=== PATIENT | male | born 1985 | race Caucasian/White ===

== ENCOUNTER 2024-08-19 20:52 | Emergency (ER) | payer MEDICAID, OTHER ==
[~2024-08-19] VITALS: Ht 188 cm; Wt 70.0 kg
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
[2024-08-20 00:08] VITALS: BP 99/64; PULSE 94
[2024-08-20 00:11] VITALS: RESP 18; O2SAT 100
== END 2024-08-20 00:21 | disposition home or self-care (01) ==
LOC: ER 20:52 → EDBD 20:52 → ER 08-20 00:21
DX: T69.9XXA Effect of reduced temperature, unspecified, initial encounter (principal); Z59.00 Homelessness unspecified; X31.XXXA Exposure to excessive natural cold, initial encounter

== ENCOUNTER 2024-12-04 02:57 | Inpatient (IN) | payer MEDICAID ==
[~2024-12-04] VITALS: Ht 185.4 cm; Wt 73.6 kg
[2024-12-04] MEDS ORDERED: HYD1TP TOP (03:18)
[2024-12-04] MEDS ORDERED: DIPH25TA54 PO (03:18)
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
[2024-12-04] MEDS: predniSONE 20 MG TAB PO ONE (04:12)
[2024-12-04 05:27] LABS: Basophils # (auto) 0.1 10 ^3/uL (0-0.2); Basophils % (auto) 1.3 % (0.0-2.0); Eosinophils # (auto) 0.4 10 ^3/uL (0-0.8); Eosinophils % (auto) 5.3 % (0.0-7.0); Hematocrit 42.8 % (41.0-53.0); Hemoglobin 14.6 g/dL (13.5-17.5); Lymphocytes # (auto) 2.8 10 ^3/uL (0.4-5.4); Lymphocytes % (auto) 38.9 % (10.0-50.0); Mean Corpuscular Hemoglobin 30.3 pg (28.0-32.0); Mean Corpuscular Hgb Conc. 34.1 g/dL (32.0-36.0); Mean Corpuscular Volume 88.6 fL (80.0-100.0); Monocytes % (auto) 13.2 % (0.0-12.0); Neutrophils % (auto) 41.3 % (37.0-80.0); Nucleated Red Blood Cells % 0.1 %; Platelet Count (auto) 365 10^3/uL (140-450); Red Blood Cells 4.83 10^6/uL (4.5-5.90); Red Cell Distribution Width 13.9 % (11.8-14.3); White Blood Cell 7.2 10^3/uL (4.4-10.8)
[2024-12-04 05:45] LABS: Albumin 4.5 g/dL (3.2-4.8); Alkaline Phosphatase 98 U/L (46-116); Anion Gap 7 (5-15); BUN/Creatinine Ratio 6.4 (10.0-20.0); Bilirubin, Total 0.5 mg/dL (0.2-1.0); CRP High Sensitivity 0.24 mg/dL (<1.0); Calcium 9.5 mg/dL (8.7-10.4); Carbon Dioxide 24 mmol/L (20-31); Glucose 92 mg/dL (74-106); Magnesium 2.3 mg/dL (1.6-2.6); Potassium 3.6 mmol/L (3.5-5.1); Sodium 141 mmol/L (136-145); Total Protein 7.2 g/dL (5.7-8.2)
[2024-12-04 06:02] LABS: Alanine Aminotransferase 50 U/L (7-40); Aspartate Aminotransferase 53 U/L (13-40); Blood Urea Nitrogen 5 mg/dL (9-23); Chloride 110 mmol/L (98-107); Creatine Kinase IFCC 1484 U/L (46-171)
[2024-12-04] MEDS: SODIUM CHLORIDE 0.9% 1,000 ML IV ONE ×2 (06:15→07:23)
[2024-12-04 06:27] LABS: Blood Alcohol < 3.0 mg/dL (<10)
--- NOTE | 2024-12-04 06:34 | DVH ---
EXAM: CT HEAD WITHOUT CONTRAST INDICATION: Bilateral lower extremity weakness TECHNIQUE: CT of the head without intravenous contrast. Radiation Dose : 1. Head: CT Dose: CTDI volume is 57 mGy. Dose-length product is 1133 mGy*cm The dose indicators for CT are the volume Computed Tomography (CT) Dose Index (CTDIvol) and the Dose Length Product (DLP), and are measured in units of mGy and mGy-cm, respectively. These indicators are not patient dose, but values generated from the CT scanner acquisition factors. The report includes radiation exposure data for exposures received during this examination. COMPARISON: None FINDINGS: There is no evidence of acute intracranial hemorrhage, extra-axial collection, mass effect, midline s hift, herniation or hydrocephalus. The ventricles, sulci and cisterns are age appropriate. The obregon-white differentiation is intact. The visualized paranasal sinuses and mastoid air cells are clear. The surrounding soft tissues and osseous structures are unremarkable. IMPRESSION: No acute intracranial abnormality. Radiation optimization: All CT scans at this facility use at least one of these dose optimization tony hniques: automated exposure control mA and/or kV adjustment per patient size (includes targeted exam s where dose is matched to clinical indication) or iterative reconstruction.
--- NOTE | 2024-12-04 06:54 | DVH ---
EXAM: CT LS SPINE WO CONTRAST HISTORY: Bilateral lower extremity weakness, history of back pain COMPARISON: None CTDIvol 22 mGy, DLP 865 mGy*cm. TECHNIQUE: Multiple axial CT images of the spine were obtained using bone algorithm. Axial and coron al reformatting was done. Bone and soft tissue windows were reviewed. FINDINGS: No CT evidence of definite acute fracture, spinal dislocation, or significant appearing acute subluxa tion is seen. The visualized paraspinal soft tissues are grossly unremarkable. Mild disc osteophyte hypertrophy at L5-S1 creates mild canal and mild to moderate left foraminal sten osis. Moderate canal stenosis at L3-L4 and L4-L5. Borderline congenitally spinal canal possibly representing a degree of developmental lumbar spinal st enosis. Nonemergent MRI can be obtained to further evaluate if clinically indicated. IMPRESSION: No definite CT evidence of acute fracture or dislocation of the bony lumbar spine.
[2024-12-04] MEDS ORDERED: ACETAMINOPHEN 500 MG TAB or CAP PO PRN (07:00)
[2024-12-04] MEDS ORDERED: traMADol HCL 50 MG TAB PO PRN (07:00)
[2024-12-04] MEDS ORDERED: HYDROCORTISONE 2.5% TOPICAL CREAM 30GM TUBE TOP PRN (07:00)
[2024-12-04] MEDS ORDERED: ONDANSETRON HCL 4 MG/2 ML VIAL IV PRN (07:00)
--- NOTE | 2024-12-04 07:14 | DVHHP2 ---
History of Present Illness Reason for Visit: Questionable allergic reaction to legs, lower extremity weakness History of Present Illness Patient was a 39-year-old male presenting to the emergency room with worsening bilateral lower extremity weakness, as well as rash to his legs and sacral area. Patient is somewhat encephalopathic, questionable toxic encephalopathy according to ER physician's notes with history of illicit drug use. Patient was states that his symptoms started approximately one day ago. He denies having any medical history. Patient was found to have severe lower extremity weakness, unable to bend his legs when asked to move. Patient was able to plantar flex and dorsiflex with noted weakness. CT scan of lumbar spine is pending, with questionable lumbar spinal fracture to be ruled out. Patient has normal strength noted to upper extremities as he was able to turn to side-lying position using his arms. Past Medical History Patient denies any medical history Past Surgical History Patient denies any surgical history Smoke: 1 pack per day ALCOHOL: none (Patient denies) Drugs: None (Patient denies) Lives: Homeless Review of Systems Constitutional: No: Fever, Chills, Sweats, Weakness, Malaise, Other Eyes: No: Pain, Vision change, Conjunctivae inflammation, Eyelid inflammation, Other, Redness ENT: No: Ear pain, Ear discharge, Nose pain, Nose discharge, Nose congestion, Mouth pain, Mouth swelling, Throat pain, Throat swelling, Other Respiratory: No: Cough, Dry, Shortness of breath, SOB with excertion, Wheezing, Hemoptysis, Pleuritic Pain, Sputum, Wheezing, Other Cardiovascular: No: Chest Pain, Palpitations, Orthopnea, Paroxysmal Noc. Dyspnea, Edema, Lt Headedness, Other Gastrointestinal: No: Nausea, Vomiting, Abdominal Pain, Diarrhea, Constipation, Melena, Hematochezia, Other Musculoskeletal: No: other, neck pain, shoulder pain, arm pain, back pain, hand pain, leg pain, foot pain Skin: Other (Burning to his legs) Neurological: Other (Weakness to lower extremities) Allergies: Coded Allergies: NO KNOWN ALLERGIES (Unverified , 08/19/24) Medications Current Medications Medications Dose Ordered Sig/Juan Route Start Time Stop Time Status Last Admin Dose Admin Hydrocortisone 1 applic BIDP PRN TOP 12/04/24 07:00 Acetaminophen 500 mg Q8HP PRN PO 12/04/24 07:00 Ondansetron HCl 4 mg Q6HP PRN IV 12/04/24 07:00 Tramadol HCl 50 mg Q6HP PRN PO 12/04/24 07:00 Exam Vital Signs Vital Signs Date Time Temp Pulse Resp B/P (MAP) Pulse Ox O2 Delivery O2 Flow Rate FiO2 12/04/24 06:30 97.8 67 16 122/82 (95) 98 97.8 12/04/24 06:15 Room Air* 0 21 General Appearance: Alert, Cooperative, moderate distress, Other (Oriented to person place) HEENT: Atraumatic, PERRLA, EOMI Cardiovascular: Normal S1, Normal S2 Abdominal: Normal bowel sounds, Soft, No tenderness Skin: No rashes, No breakdown Psych/Mental Status: Other (Difficulty focusing) Labs/Xrays Labs Test 12/04/24 06:36 12/04/24 05:15 Range/Units White Blood Count 7.2 4.4-10.8 10^3/uL Red Blood Count 4.83 4.5-5.90 10^6/uL Hemoglobin 14.6 13.5-17.5 g/dL Hematocrit 42.8 41.0-53.0 % Mean Corpuscular Volume 88.6 80.0-100.0 fL Mean Corpuscular Hemoglobin 30.3 28.0-32.0 pg Mean Corpuscular Hemoglobin Concent 34.1 32.0-36.0 g/dL Red Cell Distribution Width 13.9 11.8-14.3 % Platelet Count 365 140-450 10^3/uL Mean Platelet Volume 6.5 L 6.9-10.8 fL Neutrophils (%) (Auto) 41.3 37.0-80.0 % Lymphocytes (%) (Auto) 38.9 10.0-50.0 % Monocytes (%) (Auto) 13.2 H 0.0-12.0 % Eosinophils (%) (Auto) 5.3 0.0-7.0 % Basophils (%) (Auto) 1.3 0.0-2.0 % Neutrophils # (Auto) 3.0 1.6-8.6 10 ^3/uL Lymphocytes # (Auto) 2.8 0.4-5.4 10 ^3/uL Monocytes # (Auto) 1.0 0-1.3 10 ^3/uL Eosinophils # (Auto) 0.4 0-0.8 10 ^3/uL Basophils # (Auto) 0.1 0-0.2 10 ^3/uL Nucleated Red Blood Cells 0.1 % Sodium Level 141 136-145 mmol/L Potassium Level 3.6 3.5-5.1 mmol/L Chloride Level 110 H 98-107 mmol/L Carbon Dioxide Level 24 20-31 mmol/L Anion Gap 7 5-15 Blood Urea Nitrogen 5 L 9-23 mg/dL Creatinine 0.78 0.700-1.30 mg/dL Glomerular Filtration Rate Calc 116 >90 mL/min BUN/Creatinine Ratio 6.4 L 10.0-20.0 Serum Glucose 92 74-106 mg/dL Lactic Acid Level 1.1 0.4-2.0 mmol/L Calcium Level 9.5 8.7-10.4 mg/dL Magnesium Level 2.3 1.6-2.6 mg/dL Total Bilirubin 0.5 0.2-1.0 mg/dL Aspartate Amino Transferase (AST) 53 H 13-40 U/L Alanine Aminotransferase (ALT) 50 H 7-40 U/L Alkaline Phosphatase 98 46-116 U/L Creatine Kinase 1484 H 46-171 U/L C-Reactive Protein High Sensitivity 0.24 <1.0 mg/dL Total Protein 7.2 5.7-8.2 g/dL Albumin 4.5 3.2-4.8 g/dL Plasma/Serum Blood Alcohol < 3.0 <10 mg/dL Assessment/Plan Assessment/Plan Impression: -metabolic encephalopathy, questionable toxic -? Lumbar spinal fracture with paresthesia and claudication -? History of illicit drug use -rhabdomyolysis Plan: -admit to Medical/Surgical unit -CT scan of the lumbar spine: Pending -agree with MRI of the lumbar spine ordered by ER physician given patient's symptoms -pain management -gentle IV hydration -consider Neurology and ortho spine consultation pending diagnostic tests Total time spent with patient discussing and formulating plan of care: 35 minutes. This medical document was created using an electronic medical record system with [employer] dictation system. Although this document has been carefully reviewed, there may still be some phonetic and typographical errors. These areas are purely typographical due to imperfections of the software programs, and do not reflect any compromise in the patient's medical care. 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 Procedure Category Date Status Time Admit ADMIT 12/04/24 Transmitted 06:50 Oxygen By Nasal RT 12/04/24 Transmitted Cannula 06:50 Ls Spine Wo Contrast CT 12/04/24 Logged 06:50 Sodium Chloride 0.9% PHA 12/04/24 In Process 07:00 Hydrocortone 2.5% PHA 12/04/24 In Process Topical Crm (Hydrocort 07:00 Acetaminophen Tab Or PHA 12/04/24 In Process Cap (Tylenol Tablet 07:00 Ondansetron Hcl PHA 12/04/24 In Process (Zofran) 07:00 Basic Metabolic Panel LAB 12/05/24 Verified 04:00 Complete Blood Count LAB 12/05/24 Verified 04:00 Tramadol Hcl (Ultram) PHA 12/04/24 In Process 07:00 Date of Service: Dec 04, 2024 Billing Provider: MILES BARTHOLOMEW NP Common Visit Codes: [id number] INP/OBS CARE (HIGH) MILES BARTHOLOMEW NP Dec 04, 2024 07:14
[2024-12-04 07:29] LABS: Amphetamine Screen, Urine Pos (NEGATIVE); Barbiturate Scree,Urine Neg (NEGATIVE); Benzodiazephine Screen, Urine Neg (NEGATIVE); Cannabinoid Screen, Urine Neg (NEGATIVE); Cocaine Screen, Urine Neg (NEGATIVE); Opiate Scree,Urine Neg (NEGATIVE); Phencyclidine Screen, Urine Neg (NEGATIVE)
--- NOTE | 2024-12-04 08:25 | DVH ---
EXAM: US Scrotum and US Duplex Arterial/Venous of the Testicles, Complete CLINICAL INDICATION: Testicular swelling and TECHNIQUE: Real-time ultrasound of the scrotum with color Doppler and image documentation. Real-yvonne e duplex ultrasound scan of the arterial and venous flow of the scrotal contents with color Doppler f low and spectral waveform analysis. COMPARISON: None FINDINGS: RIGHT TESTICLE: Unremarkable. The right testicle measures 3.8 x 2.4 x 2.3 cm. No testicular torsi on or abscess. LEFT TESTICLE: The left testicle measures 4.3 x 1.9 x 3.2 cm. EPIDIDYMIDES: Right epididymis measures up to 10.2 mm. Left epididymis measures up to 10.2 mm. SCROTUM: Left varicocele. OTHER FINDINGS: . IMPRESSION: No testicular torsion or abscess.
[2024-12-04 09:30] VITALS: PULSE 85; RESP 18; O2SAT 97
[2024-12-04 10:52] VITALS: BP 114/66; PULSE 62; RESP 16; TEMP 97.7; O2SAT 100
--- NOTE | 2024-12-04 15:57 | DVH ---
EXAM: MRI LUMBAR SPINE WO CONTRAST CLINICAL HISTORY: B/L LE weakness COMPARISON: CT L spine 12/04/2024 TECHNIQUE: MRI imaging of the lumbar was performed on a MRI imaging system without intravenous contrast. FINDINGS: 5 [id number] lumbar-type vertebrae. Normal alignment of the lumbar spine. Straightening of the lumbar lordosis. Multilevel endplate Schmorl node. No evidence of acute traumatic fractures or spondy lolisthesis. Marrow edema of the anterior superior L5 vertebral body which is most likely from degene rative changes. Minimal multilevel endplate degenerative marrow signal. L5 limbus vertebra. The conus terminates at the level of the upper vertebral body of L1 with no abnormal cord signal. T12-L1: No significant spinal canal or neural foramina stenosis. L1-L2: No significant spinal canal or neural foramina stenosis. Minimal bilateral facet effusion. L2-L3: No significant spinal canal or neural foramina stenosis. Mild bilateral facet effusion L3-L4: Minimal posterior disc bulge with dorsal epidural lipomatosis causing mild spinal canal stenos is without significant neural foramina stenosis. Minimal bilateral facet effusion. L4-L5: Mild posterior disc bulge without significant spinal canal stenosis. Severe right with moderat e left-sided neural foramina stenosis. Mild bilateral facet effusion L5-S1: No significant spinal canal or neural foramina stenosis. The paraspinal muscles are unremarkable. IMPRESSION: Severe right with Moderate left-sided neural foramina stenosis at L4-L5. Mild spinal canal stenosis at L3-L4.
[2024-12-04 17:04] VITALS: BP 111/72; PULSE 62; RESP 16; TEMP 97.9; O2SAT 96
[2024-12-04 21:00] VITALS: BP 106/62; PULSE 62; RESP 20; TEMP 98.4; O2SAT 97
[2024-12-05] VITALS (8 sets, daily range): BP systolic 101–109; BP diastolic 57–73; PULSE 52–80; RESP 16–20; TEMP 97.6–98.6; O2SAT 95–98
[2024-12-05 06:57] LABS: Calcium 9.6 mg/dL (8.7-10.4); Chloride 106 mmol/L (98-107); Potassium 3.5 mmol/L (3.5-5.1); Sodium 140 mmol/L (136-145)
[2024-12-05 06:58] LABS: Anion Gap 10 (5-15); Carbon Dioxide 24 mmol/L (20-31)
[2024-12-05 07:00] LABS: Basophils # (auto) 0 10 ^3/uL (0-0.2); Basophils % (auto) 0.6 % (0.0-2.0); Eosinophils # (auto) 0.1 10 ^3/uL (0-0.8); Eosinophils % (auto) 1.7 % (0.0-7.0); Hematocrit 40.4 % (41.0-53.0); Hemoglobin 14.3 g/dL (13.5-17.5); Lymphocytes # (auto) 2.9 10 ^3/uL (0.4-5.4); Lymphocytes % (auto) 39.1 % (10.0-50.0); Mean Corpuscular Hemoglobin 31.9 pg (28.0-32.0); Mean Corpuscular Hgb Conc. 35.4 g/dL (32.0-36.0); Monocytes # (auto) 0.8 10 ^3/uL (0-1.3); Monocytes % (auto) 10.1 % (0.0-12.0); Neutrophils # (auto) 3.7 10 ^3/uL (1.6-8.6); Neutrophils % (auto) 48.5 % (37.0-80.0); Nucleated Red Blood Cells % 0.1 %; Platelet Count (auto) 352 10^3/uL (140-450); Red Blood Cells 4.49 10^6/uL (4.5-5.90); Red Cell Distribution Width 13.9 % (11.8-14.3); White Blood Cell 7.5 10^3/uL (4.4-10.8)
[2024-12-05 07:03] LABS: BUN/Creatinine Ratio 14.7 (10.0-20.0); Blood Urea Nitrogen 10 mg/dL (9-23); Glucose 92 mg/dL (74-106)
--- NOTE | 2024-12-05 13:14 | DVHPN2 ---
Subjective The patient is seen and examined at bedside. Complain of pain. Reviewed: Care Plan, H&P, Labs, Medications, Previous Orders, Radiology Changes from previous H/P or p: No Changes Eyes: No Pain, No Vision change, No Conjunctivae inflammation, No Eyelid inflammation, No Other, No Redness ENT: No Ear pain, No Ear discharge, No Nose pain, No Nose discharge, No Nose congestion, No Mouth pain, No Mouth swelling, No Throat pain, No Throat swelling, No Other Cardiovascular: No Chest Pain, No Palpitations, No Orthopnea, No Paroxysmal Noc. Dyspnea, No Edema, No Lt Headedness, No Other Respiratory: No Cough, No Dry, No Shortness of breath, No SOB with excertion, No Wheezing, No Hemoptysis, No Pleuritic Pain, No Sputum, No Other Gastrointestinal: No Nausea, No Vomiting, No Abdominal Pain, No Diarrhea, No Constipation, No Melena, No Hematochezia, No Other Musculoskeletal: No other, No neck pain, No shoulder pain, No arm pain, No back pain, No hand pain, No leg pain, No foot pain Skin: Other (Burning to his legs) Objective Vitals Vital Signs Date Time Temp Pulse Resp B/P (MAP) Pulse Ox O2 Delivery O2 Flow Rate FiO2 12/05/24 09:30 80 18 97 Room Air* 0 21 12/05/24 09:08 97.6 101/65 (77) 97.6 Intake/Output Intake and Output 12/05/24 07:00 Intake Total 1650 ml Output Total 780 ml Balance 870 ml Intake Oral 425 ml IV Total 1225 ml Output Urine Total 780 ml # Voids 5 # Bowel Movements 1 General Appearance: Alert, Oriented X3, Cooperative, No acute distress HEENT: Atraumatic, PERRLA, EOMI, Mucous membr. moist/pink Neck: Supple Lungs: Clear to auscultation, Normal air movement Cardiovascular: Regular rate, Normal S1, Normal S2, No murmurs, Gallops, Rubs Abdomen: Normal bowel sounds, Soft, No tenderness Neuro: Cranial nerves 3-12 NL Psych/Mental Status: Mental status NL Medications Current Medications Medications Dose Ordered Sig/Juan Route Start Time Stop Time Status Last Admin Dose Admin Hydrocortisone 1 applic BIDP PRN TOP 12/04/24 07:00 Acetaminophen 500 mg Q8HP PRN PO 12/04/24 07:00 Ondansetron HCl 4 mg Q6HP PRN IV 12/04/24 07:00 Tramadol HCl 50 mg Q6HP PRN PO 12/04/24 07:00 Laboratory Results Laboratory Tests 12/05/24 05:53 Chemistry Test 12/05/24 05:53 Calcium Level 9.6 mg/dL (8.7-10.4) Labs and/or images reviewed: Labs reviewed by me Assessment/Plan Assessment/Plan -metabolic encephalopathy, questionable toxic -lumbar stenosis with paresthesia and claudication -? History of illicit drug use -rhabdomyolysis Plan: Continuing current management. Review MRI showed: Severe right with Moderate left-sided neural foramina stenosis at L4-L5. Mild spinal canal stenosis at L3-L4. I will consult spine surgeon. Continuing pain medication. Continuing IV fluid. This medical document was created using an electronic medical record system with [employer] computerized dictation system. Although this document has been carefully reviewed, there may still be some phonetic and typographical errors. These areas are purely typographical due to imperfections of the software programs, and do not reflect any compromise in the patient's medical care. 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 Date of Service: Dec 05, 2024 Billing Provider: KARYN LOO MD Common Visit Codes: [id number] INP/OBS CARE(HIGH) KARYN LOO MD Dec 05, 2024 13:14
--- NOTE | 2024-12-05 19:39 | DVHINCON2 ---
Consultation - Spinal Surgery Date Seen: Dec 05, 2024 Referring Physician Referring Physician Attending Doctor: Austin Smith [employer] Extrusion Machine Operator Reason for Consultation Reason for Visit: Questionable allergic reaction to legs, lower extremity weakness History of Present Illness History of Present Illness Patient was a 39-year-old male presenting to the emergency room with worsening bilateral lower extremity weakness, as well as rash to his legs and sacral area. Patient is somewhat encephalopathic, questionable toxic encephalopathy according to ER physician's notes with history of illicit drug use. Patient was states that his symptoms started approximately one day ago. He denies having any medical history. Patient was found to have severe lower extremity weakness, unable to bend his legs when asked to move. Patient was able to plantar flex and dorsiflex with noted weakness. CT scan of lumbar spine is pending, with questionable lumbar spinal fracture to be ruled out. Patient has normal strength noted to upper extremities as he was able to turn to side-lying position using his arms. Past Medical/Surgical History Past Medical/Surgical History Past Medical History Patient denies any medical history Past Surgical History Patient denies any surgical history Family and Social History Family and Social History Smoke: 1 pack per day ALCOHOL: none (Patient denies) Drugs: None (Patient denies) Lives: Homeless Allergies and medications Allergies: Coded Allergies: NO KNOWN ALLERGIES (Unverified , 08/19/24) Home Meds Active Scripts Diphenhydramine Hcl (Benadryl Allergy) 25 Mg Tab, 25 MG PO TIDPRN PRN for 3 Days, #9 TAB Prov:SULLY CASTELLON MD 12/04/24 Hydrocortone (Hydrocortisone 1%) 1 Applic Ap, 1 APPLIC TOP BID for 7 Days, #30 GRAMS Do not use more than 7 days Prov:SULLY CASTELLON MD 12/04/24 Review of systems Review of Systems: HEENT:Normal, CVS:Normal, RESPIRATORY:Normal, GI:Normal, :Normal, MSK:Abnormal (unable to bend his legs Skin: Other (Burning to his legs)), NEURO:Abnormal Examination Vital signs Imaging EXAM: MRI LUMBAR SPINE WO CONTRAST CLINICAL HISTORY: B/L LE weakness COMPARISON: CT L spine 12/04/2024 TECHNIQUE: MRI imaging of the lumbar was performed on a MRI imaging system without intravenous contrast. FINDINGS: 5 [id number] lumbar-type vertebrae. Normal alignment of the lumbar spine. Straightening of the lumbar lordosis. Multilevel endplate Schmorl node. No evidence of acute traumatic fractures or spondylolisthesis. Marrow edema of the anterior superior L5 vertebral body which is most likely from degenerative changes. Minimal multilevel endplate degenerative marrow signal. L5 limbus vertebra. The conus terminates at the level of the upper vertebral body of L1 with no abnormal cord signal. T12-L1: No significant spinal canal or neural foramina stenosis. L1-L2: No significant spinal canal or neural foramina stenosis. Minimal bilateral facet effusion. L2-L3: No significant spinal canal or neural foramina stenosis. Mild bilateral facet effusion L3-L4: Minimal posterior disc bulge with dorsal epidural lipomatosis causing mild spinal canal stenosis without significant neural foramina stenosis. Minimal bilateral facet effusion. L4-L5: Mild posterior disc bulge without significant spinal canal stenosis. Severe right with moderate left-sided neural foramina stenosis. Mild bilateral facet effusion L5-S1: No significant spinal canal or neural foramina stenosis. The paraspinal muscles are unremarkable. IMPRESSION: Severe right with Moderate left-sided neural foramina stenosis at L4-L5. Mild spinal canal stenosis at L3-L4. : CT LS SPINE WO CONTRAST HISTORY: Bilateral lower extremity weakness, history of back pain COMPARISON: None CTDIvol 22 mGy, DLP 865 mGy*cm. TECHNIQUE: Multiple axial CT images of the spine were obtained using bone algor ithm. Axial and coronal reformatting was done. Bone and soft tissue windows were reviewed. FINDINGS: No CT evidence of definite acute fracture, spinal dislocation, or significant appearing acute subluxation is seen. The visualized paraspinal soft tissues are grossly unremarkable. Mild disc osteophyte hypertrophy at L5-S1 creates mild canal and mild to moderate left foraminal stenosis. Moderate canal stenosis at L3-L4 and L4-L5. Borderline congenitally spinal canal possibly representing a degree of d evelopmental lumbar spinal stenosis. Nonemergent MRI can be obtained to further evaluate if clinically indicated. IMPRESSION: No definite CT evidence of acute fracture or dislocation of the bony lumbar spine. Vital Signs Date Time Temp Pulse Resp B/P (MAP) Pulse Ox O2 Delivery O2 Flow Rate FiO2 12/05/24 17:20 97.7 58 16 103/59 (74) 98 97.7 12/05/24 09:30 Room Air* 0 21 Laboratory Labs Test 12/05/24 05:53 12/04/24 06:36 12/04/24 05:15 Range/Units White Blood Count 7.5 4.4-10.8 10^3/uL Red Blood Count 4.49 L 4.5-5.90 10^6/uL Hemoglobin 14.3 13.5-17.5 g/dL Hematocrit 40.4 L 41.0-53.0 % Mean Corpuscular Volume 90.0 80.0-100.0 fL Mean Corpuscular Hemoglobin 31.9 28.0-32.0 pg Mean Corpuscular Hemoglobin Concent 35.4 32.0-36.0 g/dL Red Cell Distribution Width 13.9 11.8-14.3 % Platelet Count 352 140-450 10^3/uL Mean Platelet Volume 6.6 L 6.9-10.8 fL Neutrophils (%) (Auto) 48.5 37.0-80.0 % Lymphocytes (%) (Auto) 39.1 10.0-50.0 % Monocytes (%) (Auto) 10.1 0.0-12.0 % Eosinophils (%) (Auto) 1.7 0.0-7.0 % Basophils (%) (Auto) 0.6 0.0-2.0 % Neutrophils # (Auto) 3.7 1.6-8.6 10 ^3/uL Lymphocytes # (Auto) 2.9 0.4-5.4 10 ^3/uL Monocytes # (Auto) 0.8 0-1.3 10 ^3/uL Eosinophils # (Auto) 0.1 0-0.8 10 ^3/uL Basophils # (Auto) 0 0-0.2 10 ^3/uL Nucleated Red Blood Cells 0.1 % Sodium Level 140 136-145 mmol/L Potassium Level 3.5 3.5-5.1 mmol/L Chloride Level 106 98-107 mmol/L Carbon Dioxide Level 24 20-31 mmol/L Anion Gap 10 5-15 Blood Urea Nitrogen 10 9-23 mg/dL Creatinine 0.68 L 0.700-1.30 mg/dL Glomerular Filtration Rate Calc 121 >90 mL/min BUN/Creatinine Ratio 14.7 10.0-20.0 Serum Glucose 92 74-106 mg/dL Calcium Level 9.6 8.7-10.4 mg/dL Urine Opiates Screen Neg NEGATIVE Urine Fentanyl Screen Neg NEGATIVE Urine Barbiturates Screen Neg NEGATIVE Urine Phencyclidine Screen Neg NEGATIVE Urine Amphetamines Screen Pos NEGATIVE Urine Benzodiazepines Screen Neg NEGATIVE Urine Cocaine Screen Neg NEGATIVE Urine Cannabinoids Screen Neg NEGATIVE Lactic Acid Level 1.1 0.4-2.0 mmol/L Magnesium Level 2.3 1.6-2.6 mg/dL Total Bilirubin 0.5 0.2-1.0 mg/dL Aspartate Amino Transferase (AST) 53 H 13-40 U/L Alanine Aminotransferase (ALT) 50 H 7-40 U/L Alkaline Phosphatase 98 46-116 U/L Creatine Kinase 1484 H 46-171 U/L C-Reactive Protein High Sensitivity 0.24 <1.0 mg/dL Total Protein 7.2 5.7-8.2 g/dL Albumin 4.5 3.2-4.8 g/dL Plasma/Serum Blood Alcohol < 3.0 <10 mg/dL Examination: GENERAL:Normal, HEENT:Normal, NECK:Normal (Patient has no complaints of neck pain arm weakness or hand weakness), LUNGS:Normal, CVS:Normal, ABDOMEN:Normal, MSK:Normal (Patient presently has equal strong 5/5 bilateral leg strength patient reports numbness to his toes, has a history of bilateral sciatica patient states that his legs are giving out on him he also complains of the numbness starting at his scope RhoGAM and radiating up to his belly button then down to his legs), SKIN:Normal, NEURO:Normal (Patient presents with 5/5 bilateral lower extremity strength, equal pedal pushes and pulls, patient states that he has numbness located in his toes it is intermittent and o ccasionally he becomes so numb from his knees down that he is unable to walk), :Normal Problem List/Assessment/Plan Problems: (1) Lumbar stenosis with neurogenic claudication (2) Lower extremity weakness Assessment and Plan 1. No lumbar spine fracture 2. Spinal stenosis at L3-4, L4-5 > present symptoms would not be related to these findings. 3. Suggest a neurology consult to find out if there are other causes for the numbness in his scrotum that goes up to his belly button and down to his toes 4. Further care and management per admitting team's discretion > patient states he has a family history of diabetes however he has never been diagnosed Call with shari Larios [facility] Orthopaedic Spine Surgery nurse practitioner For Dr Musa Stallings Patient was examined, chart reviewed, labs evaluated, and diagnostic studies and findings analyzed. Case was discussed with Dr. Meek Stallings who formulated the plan of care. This medical document was created using an electronic medical record system with [employer] dictation system. Although this document has been carefully reviewed, there might still be some phonetic and typographical errors. These areas are purely typographical due to imperfections of the software programs, and do not reflect any compromise in the patient's medical care. Plan discussed with 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, Other (Aline extension [id number]) MARINA LARIOS NP Dec 05, 2024 19:38
[2024-12-06] VITALS (7 sets, daily range): BP systolic 101–105; BP diastolic 52–65; PULSE 53–58; RESP 16–20; TEMP 97.4–98.1; O2SAT 94–97
--- NOTE | 2024-12-06 14:31 | DVHPN2 ---
Subjective Patient states he was able to ambulate now. Continues to have intermittent paresthesia to his bilateral feet. Reviewed: Care Plan, H&P, Labs, Medications, Previous Orders Changes from previous H/P or p: Changes General: Per HPI Eyes: No Pain, No Vision change, No Conjunctivae inflammation, No Eyelid inflammation, No Other, No Redness ENT: No Ear pain, No Ear discharge, No Nose pain, No Nose discharge, No Nose congestion, No Mouth pain, No Mouth swelling, No Throat pain, No Throat swelling, No Other Cardiovascular: No Chest Pain, No Palpitations, No Orthopnea, No Paroxysmal Noc. Dyspnea, No Edema, No Lt Headedness, No Other Respiratory: No Cough, No Dry, No Shortness of breath, No SOB with excertion, No Wheezing, No Hemoptysis, No Pleuritic Pain, No Sputum, No Other Gastrointestinal: No Nausea, No Vomiting, No Abdominal Pain, No Diarrhea, No Constipation, No Melena, No Hematochezia, No Other Musculoskeletal: No other, No neck pain, No shoulder pain, No arm pain, No back pain, No hand pain, No leg pain, No foot pain Skin: Other (Burning to his legs) Objective Vitals Vital Signs Date Time Temp Pulse Resp B/P (MAP) Pulse Ox O2 Delivery O2 Flow Rate FiO2 12/06/24 09:15 56 20 94 Room Air* 0 21 12/06/24 09:00 98.1 104/62 (76) 98.1 Intake/Output Intake and Output 12/06/24 07:00 Intake Total 1125 ml Balance 1125 ml Intake Oral 1125 ml # Voids 5 # Bowel Movements 2 General Appearance: Alert, Oriented X3, Cooperative, mild distress HEENT: Atraumatic, PERRLA Lungs: Clear to auscultation, Normal air movement Cardiovascular: Normal S1, Normal S2 Abdomen: Normal bowel sounds, Soft, No tenderness, No hepatospenomegaly Musculoskeletal: Normal sensory function, Normal motor function Extremities: Normal pulses Neuro: Normal gait, Normal speech Skin: Dry, Intact Psych/Mental Status: Mental status NL, Mood NL Medications Current Medications Medications Dose Ordered Sig/Juan Route Start Time Stop Time Status Last Admin Dose Admin Hydrocortisone 1 applic BIDP PRN TOP 12/04/24 07:00 Acetaminophen 500 mg Q8HP PRN PO 12/04/24 07:00 Ondansetron HCl 4 mg Q6HP PRN IV 12/04/24 07:00 Tramadol HCl 50 mg Q6HP PRN PO 12/04/24 07:00 Laboratory Results Laboratory Tests 12/05/24 05:53 Labs and/or images reviewed: Labs reviewed by me, Image(s) reviewed by me Assessment/Plan Assessment/Plan Impression: -metabolic encephalopathy, questionable toxic -? Lumbar spinal fracture with paresthesia and claudication -? History of illicit drug use -rhabdomyolysis Plan: -events: No events overnight. Patient has lower extremity weakness has improved. Continues to report paresthesia. -CT scan and MRI of the lumbar spine have been reviewed. Recommendations by spinal surgery reviewed. -neurology consultation -pain management -repeat labs in a.m. including CPK Further course of treatment per neurology recommendations Total time spent with patient discussing and formulating plan of care: 35 minutes. This medical document was created using an electronic medical record system with [employer] dictation system. Although this document has been carefully reviewed, there may still be some phonetic and typographical errors. These areas are purely typographical due to imperfections of the software programs, and do not reflect any compromise in the patient's medical care. 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) My Orders Orders - MILES BARTHOLOMEW NP Procedure Category Date Status Time * Neurology Consult CONS 12/06/24 Verified 14:26 Date of Service: Dec 06, 2024 Billing Provider: MILES BARTHOLOMEW NP Common Visit Codes: [id number] INP/OBS CARE(HIGH) MILES BARTHOLOMEW NP Dec 06, 2024 14:31
[2024-12-06 16:43] LABS: Chloride 100 mmol/L (98-107); Potassium 4.5 mmol/L (3.5-5.1); Sodium 137 mmol/L (136-145)
[2024-12-06 16:44] LABS: Anion Gap 6 (5-15); Calcium 9.7 mg/dL (8.7-10.4)
[2024-12-06 16:47] LABS: Carbon Dioxide 31 mmol/L (20-31)
[2024-12-06 16:49] LABS: BUN/Creatinine Ratio 12.1 (10.0-20.0); Blood Urea Nitrogen 11 mg/dL (9-23); Glucose 91 mg/dL (74-106)
[2024-12-06 16:51] LABS: Creatine Kinase IFCC 125 U/L (46-171)
[2024-12-07 01:00] VITALS: BP 101/69; PULSE 59; RESP 19; TEMP 98.2; O2SAT 94
[2024-12-07 05:00] VITALS: BP 95/59; PULSE 54; RESP 19; TEMP 97.4; O2SAT 94
[2024-12-07 08:30] VITALS: PULSE 50; RESP 14; O2SAT 97
[2024-12-07 08:44] VITALS: BP 101/63; PULSE 50; RESP 14; TEMP 97.6; O2SAT 97
[2024-12-07 13:00] VITALS: BP 108/65; PULSE 71; RESP 16; TEMP 97.8; O2SAT 100
--- NOTE | 2024-12-07 14:34 | DVHDS2 ---
Discharge Summary Date of Admission Dec 04, 2024 at 06:50 Date of Discharge: Dec 07, 2024 Admitting Diagnosis Toxic metabolic encephalopathy Labs/Diagnostic Data: Laboratory Results Test 12/06/24 16:00 12/05/24 05:53 12/04/24 06:36 12/04/24 05:15 Sodium Level 137 mmol/L (136-145) Potassium Level 4.5 mmol/L (3.5-5.1) Chloride Level 100 mmol/L (98-107) Carbon Dioxide Level 31 mmol/L (20-31) Anion Gap 6 (5-15) Blood Urea Nitrogen 11 mg/dL (9-23) Creatinine 0.91 mg/dL (0.700-1.30) Glomerular Filtration Rate Calc 110 mL/min (>90) BUN/Creatinine Ratio 12.1 (10.0-20.0) Serum Glucose 91 mg/dL (74-106) Calcium Level 9.7 mg/dL (8.7-10.4) Creatine Kinase 125 U/L (46-171) White Blood Count 7.5 10^3/uL (4.4-10.8) Red Blood Count 4.49 10^6/uL (4.5-5.90) Hemoglobin 14.3 g/dL (13.5-17.5) Hematocrit 40.4 % (41.0-53.0) Mean Corpuscular Volume 90.0 fL (80.0-100.0) Mean Corpuscular Hemoglobin 31.9 pg (28.0-32.0) Mean Corpuscular Hemoglobin Concent 35.4 g/dL (32.0-36.0) Red Cell Distribution Width 13.9 % (11.8-14.3) Platelet Count 352 10^3/uL (140-450) Mean Platelet Volume 6.6 fL (6.9-10.8) Neutrophils (%) (Auto) 48.5 % (37.0-80.0) Lymphocytes (%) (Auto) 39.1 % (10.0-50.0) Monocytes (%) (Auto) 10.1 % (0.0-12.0) Eosinophils (%) (Auto) 1.7 % (0.0-7.0) Basophils (%) (Auto) 0.6 % (0.0-2.0) Neutrophils # (Auto) 3.7 10 ^3/uL (1.6-8.6) Lymphocytes # (Auto) 2.9 10 ^3/uL (0.4-5.4) Monocytes # (Auto) 0.8 10 ^3/uL (0-1.3) Eosinophils # (Auto) 0.1 10 ^3/uL (0-0.8) Basophils # (Auto) 0 10 ^3/uL (0-0.2) Nucleated Red Blood Cells 0.1 % Urine Opiates Screen Neg (NEGATIVE) Urine Fentanyl Screen Neg (NEGATIVE) Urine Barbiturates Screen Neg (NEGATIVE) Urine Phencyclidine Screen Neg (NEGATIVE) Urine Amphetamines Screen Pos (NEGATIVE) Urine Benzodiazepines Screen Neg (NEGATIVE) Urine Cocaine Screen Neg (NEGATIVE) Urine Cannabinoids Screen Neg (NEGATIVE) Lactic Acid Level 1.1 mmol/L (0.4-2.0) Magnesium Level 2.3 mg/dL (1.6-2.6) Total Bilirubin 0.5 mg/dL (0.2-1.0) Aspartate Amino Transferase (AST) 53 U/L (13-40) Alanine Aminotransferase (ALT) 50 U/L (7-40) Alkaline Phosphatase 98 U/L (46-116) C-Reactive Protein High Sensitivity 0.24 mg/dL (<1.0) Total Protein 7.2 g/dL (5.7-8.2) Albumin 4.5 g/dL (3.2-4.8) Plasma/Serum Blood Alcohol < 3.0 mg/dL (<10) Other Laboratory Tests 12/06/24 16:00 12/05/24 05:53 Brief Hx & Hospital Course: History of Present Illness Patient was a 39-year-old male presenting to the emergency room with worsening bilateral lower extremity weakness, as well as rash to his legs and sacral area. Patient is somewhat encephalopathic, questionable toxic encephalopathy according to ER physician's notes with history of illicit drug use. Patient was states that his symptoms started approximately one day ago. He denies having any medical history. Patient was found to have severe lower extremity weakness, unable to bend his legs when asked to move. Patient was able to plantar flex and dorsiflex with noted weakness. CT scan of lumbar spine is pending, with questionable lumbar spinal fracture to be ruled out. Patient has normal strength noted to upper extremities as he was able to turn to side-lying position using his arms. Course of hospitalization: Patient had MRI of the lumbar spine with noticed stenosis. Patient had improvement with his lower extremity use, but continues to have some paresthesia to his feet. Spinal surgical consultation was obtained. Options given to the patient regarding surgery versus conservative management. Patient was decided to leave against medical advice before the start of management could be established. Physical examination General: Alert and Oriented x3. No acute distress. Well-nourished. Eyes: EOMI. Anicteric. HENT: Moist mucous membranes. Lungs: Clear to auscultation bilaterally. No accessory muscle use. Cardiovascular: Regular rate and rhythm. No murmur. No JVD. Abdomen: Soft, non-tender and non-distended. No palpable masses. Extremities: No edema. Non-tender. Skin: No rashes or lesions. Warm. Neurologic: No focal neurological deficits. CN II-XII grossly intact, but not individually tested. Psychiatric: Cooperative. Appropriate mood and affect. Total time spent with patient discussing and formulating plan of care: 35 minutes. This medical document was created using an electronic medical record system with [employer] dictation system. Although this document has been carefully reviewed, there may still be some phonetic and typographical errors. These areas are purely typographical due to imperfections of the software programs, and do not reflect any compromise in the patient's medical care. Consults/Reason for consult Spinal surgery: Lumbar spinal stenosis Condition at Discharge: Fair Final Diagnosis/Problems List Lumbar spinal stenosis Secondary diagnosis: Toxic metabolic encephalopathy, amphetamines Rhabdomyolysis Substance abuse Bilateral lower extremity paresthesia Discharge Disposition: AMA Discharge Instruct/Medications Diet: Regular 36 Discharge Statement: "Patient was advised to return to the ER or call 911 if any headaches, dizziness, shortness of breath, chest pain, abdominal pain, bleeding, fevers, or worsening of medical condition. Patient was counseled about treatment plan, medications, possible side effects, patientverbalized understanding. All questions were answered to the best of my ability. This discharge took greater then 30 minutes in planning, reviewing documentation, counseling the patient, and discussing with other team members." ASSESSMENT ASSESSMENT Assessment Date of Service: Dec 07, 2024 Billing Provider: MILES BARTHOLOMEW NP Common Visit Codes: 54152-ESF/OBS DISCH DAY <30MIN MILES BARTHOLOMEW NP Dec 07, 2024 14:34
== END 2024-12-07 13:05 | disposition left against medical advice (07) | DRG 347 ==
LOC: ER 02:57 → EDBD 02:57 → EDUNIT# 02:57 → OVERFLOW 06:50 → WEST WING 10:52
PROVIDERS: ADMIT Nurse Practitioner Acute Care; ATTEND Nurse Practitioner Acute Care
DX: M48.062 Spinal stenosis, lumbar region with neurogenic claudication (principal); G92.8 Other toxic encephalopathy; M62.82 Rhabdomyolysis; F19.90 Other psychoactive substance use, unspecified, uncomplicated; Z53.29 Procedure and treatment not carried out because of patient's decision for other reasons; R26.2 Difficulty in walking, not elsewhere classified; Z59.00 Homelessness unspecified; Z87.891 Personal history of nicotine dependence; Z83.3 Family history of diabetes mellitus
CPT/HCPCS: 36415; 70450; 72131; 72148; 76870; 80048; 80053; 80307; 80320; 82550; 83605; 83735; 85025; 86141; 96360; 96361; G0378